=== PATIENT | male | born 1950 | race Caucasian/White ===

== ENCOUNTER → 2018-07-23 | Outpatient (CLI) | payer MEDICARE, OTHER ==
--- NOTE | 2018-07-23 09:05 | KCIC ---
EXAM: Chest CT without intravenous contrast. HISTORY: Persistent cough.. TECHNIQUE: Computed tomographic images of the chest were obtained without contrast. Multiplanar reformatting was performed. *One or more of the following individualized dose reduction techniques were utilized for this examination: 1. Automated exposure control. 2. Adjustment of the mA and/or kV according to patient size. 3. Use of iterative reconstruction technique. COMPARISON: None. FINDINGS: There is no infiltrate, pleural effusion or pneumothorax. There is a 6 mm nodule within the anterior lateral right lower lobe. There are few tiny benign pleural-based nodular opacities. The heart is normal in size. There is no lymphadenopathy. The upper abdomen is unremarkable. There is no suspicious osseous lesion. There is degenerative endplate remodeling and there are Schmorl's nodes throughout the thoracic spine. IMPRESSION: 1. No acute thoracic finding. 2. 8 mm right lower lobe pulmonary nodule. Follow up according to Fleischner Society criteria. Fleischner Society recommendations (Radiology 2005; 237; 395-400): In a low risk patient: <4mm - No follow up required. >4-6mm- 12 month follow up, if unchanged, no further follow up. >6-8mm- 6-12 month follow up, then at 18-24 months if no change. >8mm- 3, 9, 24 month follow up or consideration of PET/CT. In a high risk patient: <4mm - 12 month follow up, if unchanged then no further follow up. >4-6mm- 6-12 month follow up, then at 18-24 months if no change. >6-8mm- 3-6 month follow up, then at 9-12 months and 24 months if no change >8mm- Same as for low risk patient. Electronically signed by: Rose Lizarraga MD (07/23/2018 9:02 AM) [email or web address]
== END | disposition home or self-care (01) ==
LOC: KCIC CT 08:07
PROVIDERS: ATTEND Physician Assistant Medical
DX: R05 Cough (principal); R91.1 Solitary pulmonary nodule
CPT/HCPCS: 71250

== ENCOUNTER → 2019-02-28 | Outpatient (CLI) | payer MEDICARE, OTHER ==
--- NOTE | 2019-02-28 13:12 | KCIC ---
ANKLE RIGHT 3V 02/28/2019 11:37 AM INDICATION: Right ankle pain near the lateral malleolus for years. Unstable joint. COMPARISON: None available. TECHNIQUE: 3 views the right ankle are provided. FINDINGS: There is no acute fracture or dislocation. Tibial plafond and talar dome are intact. Ankle mortise is congruent. Bone mineralization is within normal limits. Joint spaces are maintained. Regional soft tissues are within normal limits. There is no soft tissue gas or osseous erosion. IMPRESSION: No acute fracture or dislocation. Electronically signed by: Kristen Nichole MD (02/28/2019 1:09 PM) [email or web address]
== END | disposition home or self-care (01) ==
LOC: KCIC 11:31
PROVIDERS: ATTEND Family Medicine
DX: M25.571 Pain in right ankle and joints of right foot (principal); M25.371 Other instability, right ankle
CPT/HCPCS: 73610

== ENCOUNTER → 2020-03-15 | Outpatient (CLI) | payer MEDICARE, OTHER ==
--- NOTE | 2020-03-15 16:26 | KCIC ---
EXAM: LEFT ANKLE 3 VIEWS. HISTORY: Left ankle pain. COMPARISON: None. FINDINGS: Three views of the left ankle are obtained. No fractures are identified. Alignment is normal. Joint spaces are maintained. Atherosclerotic calcifications are noted. IMPRESSION: 1. No fracture. Electronically signed by: Hernán Jc MD (03/15/2020 4:23 PM) [id number]
== END | disposition home or self-care (01) ==
LOC: KCIC 15:05
PROVIDERS: ATTEND Family Medicine
DX: M25.572 Pain in left ankle and joints of left foot (principal); I70.0 Atherosclerosis of aorta
CPT/HCPCS: 73610

== ENCOUNTER → 2021-04-07 | Outpatient (CLI) | payer MEDICARE, OTHER ==
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
== END ==
LOC: KCIC 11:03
PROVIDERS: ATTEND Family Medicine
DX: M51.36 Other intervertebral disc degeneration, lumbar region (principal); Z90.49 Acquired absence of other specified parts of digestive tract
CPT/HCPCS: 72110